=== PATIENT | female | born 1990 | race Caucasian/White ===

== ENCOUNTER 2017-05-29 18:32 | Emergency (ER) | payer MEDICAID ==
[2017-05-29 18:36] VITALS: O2SAT 100
--- NOTE | 2017-05-29 19:23 | ED PDOC ---
"HPI: Abdomen Time Seen by Provider: 05/29/17 19:03 Chief Complaint (Nursing): Abdominal Pain History Per: Patient History/Exam Limitations: no limitations Onset/Duration Of Symptoms: Hrs Outside of [place] travel?: No Additional Complaint(s): No PMHX, presenting with abdominal pain, R sided since this afternoon, states she had one miscarriage around this time last year and was told to come to ER by her OB if she had any abnormal symptoms, states the pain is currently not there but occurred earlier while she was walking, relieved by putting up her leg, states some nausea but states that she has been nauseated whenever she is hungry. No vomitng, no abnormal bowel movements, no fevers, chills, nor vaginal bleeding. States she has a discharge that is typical for her before she has a period, which is clear. Past Medical History Reviewed: Historical Data, Nursing Documentation, Vital Signs Vital Signs: Last Vital Signs Temp 98.4 F 05/29/17 18:34 Pulse 88 05/29/17 18:34 Resp 16 05/29/17 18:34 BP 132/81 05/29/17 18:34 Pulse Ox 100 05/29/17 19:26 - Medical History PMH: No Chronic Diseases - Family History Family History: States: Unknown Family Hx - Home Medications Home Medications: Ambulatory Orders Medication Instructions Recorded Nitrofurantoin Macrocrystals 100 mg PO BID 5 Days cap 05/29/17 [Macrobid] - Allergies Allergies/Adverse Reactions: Allergies Allergy/AdvReac Type Severity Reaction Status Date / Time No Known Allergies Allergy Verified 05/29/17 18:34 Review of Systems ROS Statement: Except As Marked, All Systems Reviewed And Found Negative Gastrointestinal: Positive for: Nausea, Abdominal Pain Genitourinary Female: Positive for: Vaginal Discharge Physical Exam - Reviewed Nursing Documentation Reviewed: Yes Vital Signs Reviewed: Yes - Physical Exam Appears: Positive for: Well, Non-toxic, No Acute Distress Head Exam: Positive for: ATRAUMATIC, NORMAL INSPECTION, NORMOCEPHALIC Skin: Positive for: Normal Color, Warm, DRY Eye Exam: Positive for: EOMI, Normal appearance, PERRL ENT: Positive for: Normal ENT Inspection Neck: Positive for: Normal, Painless ROM Cardiovascular/Chest: Positive for: Regular Rate, Rhythm Respiratory: Positive for: CNT, Normal Breath Sounds Gastrointestinal/Abdominal: Positive for: Normal Exam, Bowel Sounds, Soft. Negative for: Tenderness, Organomegaly, Mass, Distended, Guarding, Rebound Back: Positive for: Normal Inspection Extremity: Positive for: Normal ROM Neurologic/Psych: Positive for: Alert, Oriented - Laboratory Results Result Diagrams: 05/29/17 19:50 05/29/17 19:50 - ECG O2 Sat by Pulse Oximetry: 100 Pulse Ox Interpretation: Normal Medical Decision Making Medical Decision MakinPM A/P: Hx of previous and miscarriage coming in with abdominal pain -concerned for possible ectopic v. nonspecific abd pain of v. miscarriage -patient well appearing, comfortable, normal vitals -will get labs, ultrasound, and re-eval -patient reports no pain at this time 845PM EXAM: US , Transvaginal EXAM DATE/TIME: 05/29/2017 7:18 PM CLINICAL HISTORY: 26 years old, female; Pain; Other: Rt pelvic pain; Gestational age or lmp: ; ; Additional info: Approx 5 4/7 wks, r sided abdominal pain TECHNIQUE: Real-time transvaginal obstetrical ultrasound of the maternal pelvis and a first trimester with image documentation. Transvaginal imaging was used for better evaluation of the endometrium. COMPARISON: No relevant prior studies available. FINDINGS: Uterus: Measures 6.8 x 3.4 x 3.7 cm. Tiny, round cystic area seen within the endometrium, measuring 5.1 x 2.6 x 4.4 cm. This could represent an early intrauterine gestational sac. However, there is no internal pole or yolk sac identified. If this is a gestational sac, it would correspond to an estimated gestational age of less than 5 weeks, based on a mean gestational sac diameter of 4 mm. Cervix appears normal in length and closed. Right ovary: Normal in appearance. Measures 3.7 x 1.6 x 3.3 cm. Flow seen in the right ovary on color and Doppler imaging, with no evidence of torsion. Left ovary: Normal in appearance. Measures 3.0 x 2.2 x 2.3 cm. Within normal limits in appearance. Flow seen in the left ovary on Doppler imaging, with no evidence of torsion. Cul-de-sac: No free fluid. IMPRESSION: Tiny, round, cystic area in the endometrium. This could represent an early ( less than 5 week) intrauterine gestational sac, but there is no pole or yolk sac seen. Note that an ectopic gestation is not entirely excluded in this patient. Recommend correlation with quantitative beta HCG levels, and a follow up ultrasound to confirm an IUP. Normal ovaries. ALIYA ALVAREZ | Final Radiology Report CONFIDENTIALITY STATEMENT This report is intended only for use by the referring physician, and only in accordance with law. If you received this in error, call [phone]. Page 2 of 2 See above for remaining findings. 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 Advised to return for worsening pain, vaginal bleeding, or other concerning symptoms. Pelvic rest also advised. Patient well appearing and pain free upon discharge. Disposition - Clinical Impression Clinical Impression: Abdominal pain during , UTI (urinary tract infection) - Patient ED Disposition Is Patient to be Admitted: No - Disposition Referrals: [facility] Re[facility] [Outside] [facility]Outside] Disposition: Routine/Home Disposition Time: 20:59 Condition: IMPROVED Prescriptions: Nitrofurantoin Macrocrystals [Macrobid] 100 mg PO BID 5 Days cap Instructions: - The Second Month, Threatened Miscarriage, Urinary Tract Infections in Adults Forms: Marilee Andrews ([place] Citizen)"
[2017-05-29 20:04] LABS: SQUAMOUS EPITHIAL 30 /hpf (0-5); URINE AMORPHOUS SEDIMENT RARE /ul (<OCC); URINE BILIRUBIN NEGATIVE (NEGATIVE); URINE BLOOD SMALL (NEGATIVE); URINE CLARITY TURBID (Clear); URINE COLOR YELLOW (YELLOW); URINE GLUCOSE (UA) NEG (Normal); URINE LEUKOCYTE ESTERASE LARGE Leu/uL (Negative); URINE PROTEIN 30 mg/dL (NEGATIVE); URINE UROBILINOGEN 0.2-1.0 mg/dL (0.2-1.0)
[2017-05-29 20:05] LABS: HEMOGLOBIN 14.7 g/dL (12.0-16.0); MEAN CELL VOLUME 90.8 fl (81.0-99.0); MEAN CORPUSCULAR HEMOGLOBIN 30.5 pg (27.0-31.0); MEAN CORPUSCULAR HGB CONC 33.6 g/dL (33.0-37.0); RBC 4.8 Mil/uL (3.80-5.20); RED CELL DISTRIBUTION WIDTH 12.9 % (11.5-14.5); WHITE BLOOD COUNT 16.1 K/uL (4.8-10.8)
[2017-05-29 20:16] LABS: BLOOD UREA NITROGEN 13 mg/dl (7-17); CALCIUM 9.3 mg/dL (8.4-10.2); GFR AFRICAN-AMERICAN > 60; GFR NON-AFRICAN AMERICAN > 60
--- NOTE | 2017-05-29 20:52 | US ---
EXAM: US , Transvaginal EXAM DATE/TIME: 05/29/2017 7:18 PM CLINICAL HISTORY: 26 years old, female; Pain; Other: Rt pelvic pain; Gestational age or lmp: 04/16/17; ; Additional info: Approx 5 4/7 wks, r sided abdominal pain TECHNIQUE: Real-time transvaginal obstetrical ultrasound of the maternal pelvis and a first trimester with image documentation. Transvaginal imaging was used for better evaluation of the endometrium. COMPARISON: No relevant prior studies available. FINDINGS: Uterus: Measures 6.8 x 3.4 x 3.7 cm. Tiny, round cystic area seen within the endometrium, measuring 5.1 x 2.6 x 4.4 cm. This could represent an early intrauterine gestational sac. However, there is no internal pole or yolk sac identified. If this is a gestational sac, it would correspond to an estimated gestational age of less than 5 weeks, based on a mean gestational sac diameter of 4 mm. Cervix appears normal in length and closed. Right ovary: Normal in appearance. Measures 3.7 x 1.6 x 3.3 cm. Flow seen in the right ovary on color and Doppler imaging, with no evidence of torsion. Left ovary: Normal in appearance. Measures 3.0 x 2.2 x 2.3 cm. Within normal limits in appearance. Flow seen in the left ovary on Doppler imaging, with no evidence of torsion. Cul-de-sac: No free fluid. IMPRESSION: Tiny, round, cystic area in the endometrium. This could represent an early (less than 5 week) intrauterine gestational sac, but there is no pole or yolk sac seen. Note that an ectopic gestation is not entirely excluded in this patient. Recommend correlation with quantitative beta HCG levels, and a follow up ultrasound to confirm an IUP. Normal ovaries. See above for remaining findings.
[2017-05-29 21:12] VITALS: BP 128/78; PULSE 78; RESP 18; TEMP 98.1
== END 2017-05-29 21:12 | disposition home or self-care (01) ==
LOC: H.ER 18:32
DX: O23.40 Unspecified infection of urinary tract in pregnancy, unspecified trimester (principal); Z3A.01 Less than 8 weeks gestation of pregnancy; O26.891 Other specified pregnancy related conditions, first trimester

== ENCOUNTER 2017-05-31 09:44 | Emergency (ER) | payer MEDICAID ==
[2017-05-31 09:50] VITALS: O2SAT 98; BMI 37.8
[2017-05-31 10:37] LABS: BASO # 0.1 K/uL (0.0-0.2); BASO % 0.6 % (0.0-2.0); EOS # 0.1 K/uL (0.0-0.7); EOS % 0.5 % (0.0-4.0); LYMPH # 2.6 K/uL (1.0-4.3); LYMPH % 20.6 % (20.0-40.0); MEAN CELL VOLUME 89.8 fl (81.0-99.0); MEAN CORPUSCULAR HEMOGLOBIN 30.8 pg (27.0-31.0); MEAN CORPUSCULAR HGB CONC 34.3 g/dL (33.0-37.0); MEAN PLATELET VOLUME 9.1 fl (7.2-11.7); NEUT % 70.3 % (50.0-75.0); NRBC % 0.1 % (0.0-0.0); RBC 4.87 Mil/uL (3.80-5.20); RED CELL DISTRIBUTION WIDTH 12.9 % (11.5-14.5); WHITE BLOOD COUNT 12.8 K/uL (4.8-10.8)
[2017-05-31 11:24] LABS: BLOOD UREA NITROGEN 14 mg/dl (7-17); CALCIUM 9.4 mg/dL (8.4-10.2); GFR AFRICAN-AMERICAN > 60; GFR NON-AFRICAN AMERICAN > 60
--- NOTE | 2017-05-31 11:36 | ED PDOC ---
HPI: Female Pain Time Seen by Provider: 05/31/17 10:14 Chief Complaint (Nursing): Abnormal Labs Chief Complaint (Provider): i need repeat testing History Per: Patient History/Exam Limitations: no limitations Current Symptoms Are (Timing): Better Severity: None Quality Of Discomfort: denies: Sharp, Cramping Associated Symptoms: denies: Fever, Chills, Nausea, Vomiting, Diarrhea, Loss Of Appetite, Constipation, Urinary Symptoms Alleviating Factors: None Additional Complaint(s): 26yo female presents for repeat bloodwork for possible threatened / ectopic. Seen 2 days ago, possible small IUP. Since then feeling better, denies pain, bleeding or weakness. 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 Past Medical History Reviewed: Historical Data, Nursing Documentation Vital Signs: Last Vital Signs Temp 97 F L 05/31/17 09:49 Pulse 90 05/31/17 09:49 Resp BP 118/76 05/31/17 09:49 Pulse Ox 98 05/31/17 09:49 - Medical History PMH: No Chronic Diseases - Surgical History Surgical History: No Surg Hx - Family History Family History: States: Unknown Family Hx - Home Medications Home Medications: Ambulatory Orders Medication Instructions Recorded Nitrofurantoin Macrocrystals 100 mg PO BID 5 Days cap 05/29/17 [Macrobid] Vit No.129/Iron/Folic 1 each PO DAILY #14 tablet 05/31/17 [ One Daily Tablet] - Allergies Allergies/Adverse Reactions: Allergies Allergy/AdvReac Type Severity Reaction Status Date / Time No Known Allergies Allergy Verified 05/31/17 10:05 Review of Systems Constitutional: Negative for: Fever Cardiovascular: Negative for: Chest Pain Gastrointestinal: Negative for: Abdominal Pain Genitourinary Female: Negative for: Vaginal Discharge, Vaginal Bleeding, Pelvic Pain Neurological: Negative for: Altered Mental Status, Dizziness Physical Exam - Reviewed Nursing Documentation Reviewed: Yes Vital Signs Reviewed: Yes - Physical Exam Appears: Positive for: Well Skin: Positive for: Normal Color. Negative for: Pallor Gastrointestinal/Abdominal: Negative for: Tenderness Extremity: Positive for: Normal ROM Neurologic/Psych: Positive for: Gait (normal) - Laboratory Results Result Diagrams: 05/31/17 10:34 05/31/17 10:34 - ECG O2 Sat by Pulse Oximetry: 98 Medical Decision Making Medical Decision Making: repeat BHCG reveals increase to approx 6250. Hgb unchanged. Pt offered/ recommended repeat US but states she has to leave, has appt w her OB sunday. Told her I could not guarantee viability of or confirmatory r/o ectopic without imaging, although without symptoms of pain or bleeding this is less likely. Told can return anytime for imaging and importance of followup stressed. Indications for absolute return ER discussed. Vitals stable, gait normal. Disposition - Clinical Impression Clinical Impression: Threatened - Patient ED Disposition Is Patient to be Admitted: No Counseled Patient/Family Regarding: Studies Performed, Need For Followup - Disposition Referrals: Dixie Tomlin MD [Family Provider] - Disposition: Routine/Home Disposition Time: 11:25 Condition: STABLE Additional Instructions: Return to ER for any worse or new symptoms, bleeding, pain or any concern./ Followup for repeat ultrasound and testing as directed. Ultrasound today declined by patient. [facility] today was 6250. Prescriptions: Vit No.129/Iron/Folic [ One Daily Tablet] 1 each PO DAILY #14 tablet Instructions: Threatened Miscarriage Forms: [employer] ([place])
[2017-05-31 11:38] VITALS: BP 120/70; PULSE 88; RESP 16; TEMP 97.8
== END 2017-05-31 11:38 | disposition home or self-care (01) ==
LOC: H.ER 09:44
DX: O20.0 Threatened abortion (principal)